=== PATIENT | female | born 1965 | race Caucasian/White ===

== ENCOUNTER 2019-07-03 06:29 | Day surgery (SDC) | payer BC ==
[~2019-07-03] VITALS: Ht 172.7 cm; Wt 111.8 kg
[~2019-07-03 06:29] MED LIST: CALCIUM CITRAT1 EAC3 PO; Daily Multiple1 EACH PO; IBUP400 PO; LETR2.5 PO; LEVSOD75 PO
[2019-07-03] MEDS ORDERED: ANAS1 (07:10)
== END 2019-07-03 09:24 | disposition home or self-care (01) ==
LOC: ORSCSDS 06:29
PROVIDERS: Orthopaedic Surgery
PROC: 01N50ZZ Release Median Nerve, Open Approach (ICD-10-PCS; principal; 2019-07-03 08:00)
PROC: 0RBW0ZZ Excision of Right Finger Phalangeal Joint, Open Approach (ICD-10-PCS; principal; 2019-07-03 08:00)
DX: G56.01 Carpal tunnel syndrome, right upper limb (principal); M67.441 Ganglion, right hand; M19.049 Primary osteoarthritis, unspecified hand; J45.909 Unspecified asthma, uncomplicated; E66.01 Morbid (severe) obesity due to excess calories; Z68.37 Body mass index [BMI] 37.0-37.9, adult; Z79.899 Other long term (current) drug therapy
CPT/HCPCS: J0690; J2250; J2704; J3010; J7120

== ENCOUNTER → 2022-02-14 | Outpatient (CLI) | payer BC ==
[~2022-02-14] MED LIST changes: +ANAS1
== END | disposition home or self-care (01) ==
LOC: LAB SHORT 11:19 → PLD 11:19
DX: C44.41 Basal cell carcinoma of skin of scalp and neck (principal)
CPT/HCPCS: 88305